=== PATIENT | male | born 1960 | race African-American/Black ===

== ENCOUNTER 2018-09-22 17:49 | Emergency (ER) | payer MEDICAID, OTHER ==
[~2018-09-22] VITALS: Ht 188 cm; Wt 100.0 kg
[2018-09-22 20:51] VITALS: BP 155/96
== END 2018-09-22 20:53 | disposition home or self-care (01) ==
LOC: ER 19:44
DX: M54.2 Cervicalgia (principal); S16.1XXA Strain of muscle, fascia and tendon at neck level, initial encounter; V49.49XA Driver injured in collision with other motor vehicles in traffic accident, initial encounter; Y93.89 Activity, other specified; Y92.488 Other paved roadways as the place of occurrence of the external cause; I10 Essential (primary) hypertension; E11.9 Type 2 diabetes mellitus without complications
CPT/HCPCS: 99283

== ENCOUNTER 2021-11-08 13:16 | Inpatient (IN) | payer MEDICAID ==
[~2021-11-08] VITALS: Ht 182.9 cm; Wt 82.1 kg
[2021-11-08 14:33] LABS: BASOPHILS % 0.8 % (0.0-2.0); EOSINOPHILS % 2.3 % (0.0-5.0); HEMATOCRIT. 51.2 % (42.0-52.0); HEMOGLOBIN. 16.7 g/dL (14.0-18.0); LYMPHOCYTES % 29.2 % (20.0-50.0); MEAN CORPUSCULAR HEMOGLOBIN 28.7 pg (28.0-32.0); MEAN CORPUSCULAR VOLUME 87.8 fL (80.0-94.0); MONOCYTES % 8.9 % (2.0-8.0); NEUTROPHILS % 58.8 % (40.0-76.0); PLATELET 220 x1000/uL (130-400); RED BLOOD CELL COUNT 5.82 mill/uL (4.7-6.1); RED CELL DISTRIBUTION WIDTH 14.5 % (11.6-14.6)
[2021-11-08 14:36] LABS: CHLORIDE 103 mEq/L (98-107)
[2021-11-08 14:46] LABS: ETHANOL BLOOD < 10 mg/dL
[2021-11-08 15:44] LABS: CLARITY URINE CLEAR (CLEAR); COLOR URINE YELLOW (YELLOW); KETONES URINE NEGATIVE (NEGATIVE); LEUKOCYTE ESTERASE URINE NEGATIVE (NEGATIVE); NITRITE URINE NEGATIVE (NEGATIVE); OCCULT BLOOD URINE NEGATIVE (NEGATIVE); PH URINE 5.5 (4.5-8.0); PROTEIN URINE 2+ (NEGATIVE); SPECIFIC GRAVITY URINE 1.021 (1.005-1.030)
[2021-11-08 16:16] LABS: *AMPHETAMINES SCREEN URINE NEGATIVE (NEGATIVE); *BARBITURATES SCREEN URINE NEGATIVE (NEGATIVE); *BENZODIAZEPINES SCREEN URINE NEGATIVE (NEGATIVE); *COCAINE SCREEN URINE NEGATIVE (NEGATIVE); CANNABINOID URINE SCREEN PRESUMTIVE POSITIVE (NEGATIVE); METHADONE URINE SCREEN NEGATIVE (NEGATIVE); OPIATES URINE SCREEN NEGATIVE (NEGATIVE); PHENCYCLIDINE URINE SCREEN NEGATIVE (NEGATIVE)
[2021-11-08] MEDS ORDERED: ZOLPIDEM TARTRATE 5MG TABLET PO PRN (18:15)
[2021-11-08] MEDS ORDERED: MAGNESIUM/ALUMINUM HYDROXIDE/SIMETHICONE 30ML UDC PO PRN (18:15)
[2021-11-08] MEDS ORDERED: ACETAMINOPHEN 650MG/20.3ML UDC GT PRN (18:15)
[2021-11-08] MEDS ORDERED: ONDANSETRON HCL 4MG/2ML INJ IV PRN (18:15)
[2021-11-08] MEDS ORDERED: ACETAMINOPHEN 325MG TABLET PO PRN (18:15)
[2021-11-08] MEDS ORDERED: IPRATROPIUM/ALBUTEROL 0.5-3(2.5)MG/3ML NEB NEB PRN (18:15)
[2021-11-08] MEDS: LOSARTAN POTASSIUM 50 MG TABLET PO SCH (18:15)
[2021-11-08] MEDS ORDERED: GUAIFENESIN 200MG/10ML SUGAR FREE UDC PO PRN (18:15)
[2021-11-08] MEDS ORDERED: KETOROLAC 15MG/ML VIAL IV PRN (18:15)
[2021-11-08] MEDS ORDERED: NITROGLYCERIN 0.4MG TABLET SL SL PRN (18:15)
[2021-11-08] MEDS ORDERED: DOCUSATE SODIUM 100MG CAPSULE PO PRN (18:15)
[2021-11-08] MEDS ORDERED: DEXTROSE 50% WATER 50ML SYRINGE IV PRN (18:30)
[2021-11-08 19:15] LABS: FOLIC ACID (FOLATE) SERUM >20 ng/mL ng/mL (>5.38); VITAMIN B12 SERUM 627 pg/mL (211-911)
[2021-11-08 20:00] VITALS: BP 130/106
[2021-11-08] MEDS: BLOOD SUGAR DIAGNOSTIC STRIP TEST SCH (21:00)
[2021-11-08] MEDS: INSULIN LISPRO 100 UNITS/ML SUBCUT SCH (21:00)
[2021-11-08] MEDS: FAMOTIDINE 20MG TABLET PO SCH (21:30)
[2021-11-08] MEDS: ENOXAPARIN 40MG/0.4ML SYR SUBCUT SCH (21:30)
[2021-11-08 21:45] VITALS: BP 149/101
[2021-11-08] MEDS: CLONIDINE 0.1MG TABLET PO PRN (23:28)
[2021-11-09] VITALS: BP 164/96
[2021-11-09] MEDS ORDERED: PNEUMOCOCCAL 23-VAL P-SAC VAC 0.5 ML IM ONE (03:30)
[2021-11-09 04:00] VITALS: BP 130/84
[2021-11-09] MEDS: BLOOD SUGAR DIAGNOSTIC STRIP TEST SCH ×4 (07:07→21:06)
[2021-11-09] MEDS: INSULIN LISPRO 100 UNITS/ML SUBCUT SCH ×4 (07:50→21:30)
[2021-11-09 08:00] VITALS: BP 118/79
[2021-11-09] MEDS: FAMOTIDINE 20MG TABLET PO SCH ×2 (09:40→21:05)
[2021-11-09] MEDS: LOSARTAN POTASSIUM 50 MG TABLET PO SCH (09:40)
[2021-11-09 12:00] VITALS: BP 153/109
[2021-11-09] MEDS: ASPIRIN 325MG EC TABLET PO SCH (15:57)
[2021-11-09 16:00] VITALS: BP 129/87
[2021-11-09 20:00] VITALS: BP 137/84
[2021-11-09] MEDS: ATORVASTATIN CALCIUM 10MG TABLET PO SCH (21:05)
[2021-11-09] MEDS: ENOXAPARIN 40MG/0.4ML SYR SUBCUT SCH (21:06)
[2021-11-09] MEDS ORDERED: KETOROLAC 15MG/ML VIAL IV PRN (21:45)
[2021-11-10] VITALS: BP 100/50
[2021-11-10 04:00] VITALS: BP 93/50
[2021-11-10] MEDS: INSULIN LISPRO 100 UNITS/ML SUBCUT SCH ×4 (05:50→21:29)
[2021-11-10 08:00] VITALS: BP 157/100
[2021-11-10] MEDS: LOSARTAN POTASSIUM 50 MG TABLET PO SCH (08:22)
[2021-11-10] MEDS: ASPIRIN 325MG EC TABLET PO SCH (08:22)
[2021-11-10] MEDS: FAMOTIDINE 20MG TABLET PO SCH ×2 (08:22→21:19)
[2021-11-10 12:00] VITALS: BP 148/62
[2021-11-10] MEDS: BLOOD SUGAR DIAGNOSTIC STRIP TEST SCH ×3 (12:30→21:22)
[2021-11-10 16:00] VITALS: BP 140/82
[2021-11-10 20:00] VITALS: BP 148/92
[2021-11-10] MEDS: ENOXAPARIN 40MG/0.4ML SYR SUBCUT SCH (21:19)
[2021-11-10] MEDS: ATORVASTATIN CALCIUM 10MG TABLET PO SCH (21:19)
[2021-11-11] VITALS: BP 150/88
[2021-11-11 04:00] VITALS: BP 138/89
[2021-11-11] MEDS: BLOOD SUGAR DIAGNOSTIC STRIP TEST SCH ×4 (06:00→21:00)
[2021-11-11] MEDS: INSULIN LISPRO 100 UNITS/ML SUBCUT SCH ×4 (06:01→21:02)
[2021-11-11 08:00] VITALS: BP 152/87
[2021-11-11] MEDS: FAMOTIDINE 20MG TABLET PO SCH ×2 (08:09→21:00)
[2021-11-11] MEDS: LOSARTAN POTASSIUM 50 MG TABLET PO SCH (08:09)
[2021-11-11] MEDS: ASPIRIN 325MG EC TABLET PO SCH (08:09)
[2021-11-11] MEDS: CLONIDINE 0.1MG TABLET PO PRN (11:15)
[2021-11-11 12:00] VITALS: BP 160/114
[2021-11-11 15:38] VITALS: BP 128/78
[2021-11-11 20:00] VITALS: BP 124/76
[2021-11-11] MEDS: ENOXAPARIN 40MG/0.4ML SYR SUBCUT SCH (21:00)
[2021-11-11] MEDS: ATORVASTATIN CALCIUM 10MG TABLET PO SCH (21:00)
[2021-11-12] VITALS: BP 134/83
[2021-11-12 04:00] VITALS: BP 152/88
[2021-11-12] MEDS: INSULIN LISPRO 100 UNITS/ML SUBCUT SCH ×4 (06:01→21:06)
[2021-11-12] MEDS: BLOOD SUGAR DIAGNOSTIC STRIP TEST SCH ×4 (06:01→20:26)
[2021-11-12 08:00] VITALS: BP 134/76
[2021-11-12] MEDS: ASPIRIN 325MG EC TABLET PO SCH (08:28)
[2021-11-12] MEDS: FAMOTIDINE 20MG TABLET PO SCH ×2 (08:28→21:00)
[2021-11-12] MEDS: LOSARTAN POTASSIUM 50 MG TABLET PO SCH (08:28)
[2021-11-12 11:48] VITALS: BP 140/96
[2021-11-12] MEDS: CLOPIDOGREL 75MG TABLET PO SCH (12:19)
[2021-11-12 15:40] VITALS: BP 131/77
[2021-11-12 20:00] VITALS: BP 142/82
[2021-11-12] MEDS: ATORVASTATIN CALCIUM 10MG TABLET PO SCH (21:00)
[2021-11-12] MEDS: ENOXAPARIN 40MG/0.4ML SYR SUBCUT SCH (21:00)
[2021-11-13] VITALS: BP 157/82
[2021-11-13 04:00] VITALS: BP 156/81
[2021-11-13] MEDS: BLOOD SUGAR DIAGNOSTIC STRIP TEST SCH ×4 (05:16→21:00)
[2021-11-13] MEDS: INSULIN LISPRO 100 UNITS/ML SUBCUT SCH ×4 (06:04→21:00)
[2021-11-13 08:00] VITALS: BP 104/56
[2021-11-13] MEDS: LOSARTAN POTASSIUM 50 MG TABLET PO SCH (08:03)
[2021-11-13] MEDS: FAMOTIDINE 20MG TABLET PO SCH ×2 (08:44→22:00)
[2021-11-13] MEDS: CLOPIDOGREL 75MG TABLET PO SCH (08:44)
[2021-11-13] MEDS ORDERED: LOSA50TA41 PO (09:58)
[2021-11-13] MEDS ORDERED: METF-873 PO (09:58)
[2021-11-13] MEDS ORDERED: INSU100I28 SQ (09:58)
[2021-11-13 12:11] VITALS: BP 143/84
[2021-11-13 16:09] VITALS: BP 148/80
[2021-11-13 20:00] VITALS: BP 150/87
[2021-11-13] MEDS: ATORVASTATIN CALCIUM 10MG TABLET PO SCH (22:00)
[2021-11-13] MEDS: ENOXAPARIN 40MG/0.4ML SYR SUBCUT SCH (22:01)
[2021-11-14] MEDS: INSULIN LISPRO 100 UNITS/ML SUBCUT SCH (06:09)
[2021-11-14 06:10] VITALS: BP 148/69
[2021-11-14] MEDS: BLOOD SUGAR DIAGNOSTIC STRIP TEST SCH (07:22)
[2021-11-14 08:00] VITALS: BP 142/85
[2021-11-14] MEDS: CLOPIDOGREL 75MG TABLET PO SCH (08:45)
[2021-11-14] MEDS: FAMOTIDINE 20MG TABLET PO SCH (08:45)
[2021-11-14] MEDS: LOSARTAN POTASSIUM 50 MG TABLET PO SCH (08:45)
[2021-11-14 10:25] VITALS: BP 140/82
[2021-11-14] MEDS ORDERED: CLOP75TA15 PO (11:37)
[2021-11-14] MEDS ORDERED: ATOR10TA PO (11:37)
[2021-11-14] MEDS ORDERED: FAMO20TA8 PO (11:37)
== END 2021-11-14 11:40 | disposition home or self-care (01) | DRG 45 ==
LOC: ER 13:16 → EDBD 17:51 → 6EST 17:51 → ENRESERV 19:49 → CANBEDREQ 20:23 → ER 21:53 → 6EST 11-09 01:24 → 8WST 11-09 21:45
PROVIDERS: ADMIT Internal Medicine; ATTEND Internal Medicine
DX: I63.81 Other cerebral infarction due to occlusion or stenosis of small artery (principal); E11.9 Type 2 diabetes mellitus without complications; M48.02 Spinal stenosis, cervical region; M48.061 Spinal stenosis, lumbar region without neurogenic claudication; I16.1 Hypertensive emergency; E78.5 Hyperlipidemia, unspecified; I10 Essential (primary) hypertension; E78.1 Pure hyperglyceridemia; Z79.4 Long term (current) use of insulin; Z79.02 Long term (current) use of antithrombotics/antiplatelets; R74.01 Elevation of levels of liver transaminase levels; W19.XXXA Unspecified fall, initial encounter; Y93.89 Activity, other specified; Y92.89 Other specified places as the place of occurrence of the external cause; Y99.8 Other external cause status
CPT/HCPCS: 36415; 70551; 71045; 72141; 72146; 72148; 80053; 80061; 80305; 80320; 81003; 82607; 82746; 82962; 83036; 83540; 83550; 83880; 84443; 84484; 85025; 85651; 86140; 92523; 93005; 93880; 93970; 97112; 97116; 97161; 97162; 97165; 97166; 97535; 99285; J1650; J1815; J1885; G0480